=== PATIENT | male | born 1985 | race Caucasian/White ===

== ENCOUNTER 2020-03-27 18:52 | Emergency (ER) | payer OTHER ==
[~2020-03-27] VITALS: Ht 185.4 cm; Wt 90.9 kg
[~2020-03-27 18:52] MED LIST: COMBIVENT IN; GENTAMICIN OS; HYDROCO/APAP1 T11 OR; LORTAB 5 OR; LORTAB5 PO; MEDDOSEPAK OR; NAPROSYN500 MG OR; NAPROSYN500 MG PO; NO; NO CURRENT MEDS; PROAIR HFA IN; ZITHROMAX250 MG PO
[2020-03-27] MEDS ORDERED: HYDROCO/APAP1 TA9 PO (21:07)
[2020-03-27 21:34] VITALS: BP 132/84
== END 2020-03-27 21:52 | disposition home or self-care (01) | DRG 605 ==
LOC: ED 18:52
DX: S00.83XA Contusion of other part of head, initial encounter (principal); S40.021A Contusion of right upper arm, initial encounter; S70.11XA Contusion of right thigh, initial encounter; S20.212A Contusion of left front wall of thorax, initial encounter; S93.401A Sprain of unspecified ligament of right ankle, initial encounter; W55.29XA Other contact with cow, initial encounter; Y93.89 Activity, other specified; Y92.79 Other farm location as the place of occurrence of the external cause; Y99.0 Civilian activity done for income or pay

== ENCOUNTER 2020-05-14 14:08 | Emergency (ER) | payer SELFPAY ==
[~2020-05-14] VITALS: Ht 185.4 cm; Wt 100.0 kg
[~2020-05-14 14:08] MED LIST changes: +HYDROCO/APAP1 TA9 PO
[2020-05-14] MEDS ORDERED: BACTRIM DS1 TAB PO (14:45)
[2020-05-14] MEDS ORDERED: KEFLEX500 M1 PO (14:45)
[2020-05-14] MEDS ORDERED: LORTAB 1010 MG PO (14:45)
[2020-05-14 16:05] VITALS: BP 148/75
--- NOTE | 2020-05-16 09:37 | NUR ---
Canceled cephalexin 500 mg PO TID prescription at [facility][id number] due to MRSA result from wound culture. Bactrim DS PO BID for 10 days prescription remains ready for pickup from [facility] still. Pt will be notified by the pharmacist when he picks up rx about the cancellation.
== END 2020-05-14 16:05 | disposition home or self-care (01) | DRG 603 ==
LOC: ED 14:08
PROC: 0H9DXZZ Drainage of Right Lower Arm Skin, External Approach (ICD-10-PCS; principal; 2020-05-14)
DX: L02.413 Cutaneous abscess of right upper limb (principal); J45.909 Unspecified asthma, uncomplicated; F17.200 Nicotine dependence, unspecified, uncomplicated; B95.62 Methicillin resistant Staphylococcus aureus infection as the cause of diseases classified elsewhere

== ENCOUNTER 2021-12-15 03:18 | Observation (INO) | payer SELFPAY ==
[2021-12-15] VITALS (16 sets, daily range): BP systolic 107–147; BP diastolic 67–103
[~2021-12-15] VITALS: Ht 185.4 cm; Wt 92.0 kg
[~2021-12-15 03:18] MED LIST changes: +BACTRIM DS1 TAB PO; +KEFLEX500 M1 PO; +LORTAB 1010 MG PO
[2021-12-15 03:50] LABS: HEMATOCRIT 41.5 % (39.0-50.0); HEMOGLOBIN 13.5 g/dl (14.0-18.0); IMMATURE GRANULOCYTES 0.1 % (0.0-5.0); MEAN CORPUSCULAR HGB 29.6 pG CALC (26.0-32.0); MEAN CORPUSCULAR HGB CONC 32.5 g/dL CAL (32.0-36.0); NEUT# 5.2 thou/uL (1.82-7.42); RED BLOOD COUNT 4.56 mill/uL (4.70-6.10); RED CELL DISTRI WIDTH 13.2 % (11.5-15.5)
[2021-12-15 04:03] LABS: ALBUMIN 4.5 g/dL (3.2-5.0); ALKALINE PHOSPHATASE 39 u/l (38-126); ANION GAP 12 (6-22 (CALC)); BILIRUBIN, TOTAL 0.4 mg/dL (0.0-1.4); BUN 21 mg/dL (9-20); BUN/CREATININE RATIO 24 (12-20 (CALC)); CARBON DIOXIDE 29 mmol/l (22-30); CHLORIDE 104 mmol/l (95-108); CREATININE 0.9 mg/dL (0.7-1.3); GFR FOR AFR.AMER. > 60 ML/MIN (>=60 (CALC)); GFR OTHER RACES > 60 ML/MIN (>=60 (CALC)); SGOT/AST 25 u/l (17-59); SODIUM 140 mmol/l (137-146)
[2021-12-15 05:41] LABS: URINE BILIRUBIN - DIPSTICK NEGATIVE (NEGATIVE); URINE BLOOD DIPSTICK NEGATIVE (NEGATIVE); URINE COLOR YELLOW; URINE GLUCOSE - DIPSTICK NEGATIVE (NEGATIVE); URINE KETONE NEGATIVE (NEGATIVE); URINE LEUK ESTERASE NEGATIVE (NEGATIVE); URINE PROTEIN - DIPSTICK NEGATIVE (NEG-TRACE); URINE UROBILINOGEN - DIPSTICK 0.2 E.U./dL (0.2)
[2021-12-15 05:46] LABS: URINE NITRITE - DIPSTICK NEGATIVE (Negative)
[2021-12-15 05:57] LABS: MYOGLOBIN 44 ng/mL (0 - 121)
[2021-12-16 04:19] VITALS: BP 128/86
[2021-12-16 05:39] LABS: HEMATOCRIT 39.5 % (39.0-50.0); HEMOGLOBIN 12.8 g/dl (14.0-18.0); MEAN CELL VOLUME 92.1 fL CALC (80.0-100.0); MEAN CORPUSCULAR HGB 29.8 pG CALC (26.0-32.0); MEAN CORPUSCULAR HGB CONC 32.4 g/dL CAL (32.0-36.0); RED BLOOD COUNT 4.29 mill/uL (4.70-6.10); RED CELL DISTRI WIDTH 13.1 % (11.5-15.5)
[2021-12-16 06:09] LABS: ANION GAP 12 (6-22 (CALC)); BUN 14 mg/dL (9-20); BUN/CREATININE RATIO 14 (12-20 (CALC)); CARBON DIOXIDE 26 mmol/l (22-30); CHLORIDE 107 mmol/l (95-108); GFR FOR AFR.AMER. > 60 ML/MIN (>=60 (CALC)); GFR OTHER RACES > 60 ML/MIN (>=60 (CALC)); POTASSIUM 4.7 mmol/l (3.5-5.1); SODIUM 141 mmol/l (137-146)
[2021-12-16 06:19] VITALS: BP 124/75
[2021-12-16 11:26] VITALS: BP 136/93
[2021-12-16 16:30] VITALS: BP 137/84
[2021-12-16 18:45] VITALS: BP 125/92
[2021-12-16 23:45] VITALS: BP 125/78
[2021-12-17 03:25] VITALS: BP 126/89
[2021-12-17 06:31] VITALS: BP 114/68
[2021-12-17 10:56] VITALS: BP 114/67
[2021-12-17] MEDS ORDERED: BACTRIM DS1 TAB PO (12:06)
== END 2021-12-17 13:01 | disposition home or self-care (01) | DRG 603 ==
LOC: ED 03:18 → ED-I 05:50 → ED 06:08 → ED-I 06:37 → MS2 07:15
PROVIDERS: Emergency Medicine; ADMIT Internal Medicine; ATTEND Internal Medicine
DX: L03.116 Cellulitis of left lower limb (principal); L03.115 Cellulitis of right lower limb; F15.10 Other stimulant abuse, uncomplicated; I87.2 Venous insufficiency (chronic) (peripheral); I89.0 Lymphedema, not elsewhere classified; J45.909 Unspecified asthma, uncomplicated; F17.200 Nicotine dependence, unspecified, uncomplicated; Z20.822 Contact with and (suspected) exposure to COVID-19
CPT/HCPCS: G0378; J1650

== ENCOUNTER 2022-03-04 00:25 | Emergency (ER) | payer SELFPAY ==
[~2022-03-04] VITALS: Ht 185.4 cm; Wt 95.0 kg
[2022-03-04 01:15] LABS: HEMATOCRIT 42.5 % (39.0-50.0); HEMOGLOBIN 13.8 g/dl (14.0-18.0); IMMATURE GRANULOCYTES 0.3 % (0.0-5.0); MEAN CORPUSCULAR HGB 29.2 pG CALC (26.0-32.0); MEAN CORPUSCULAR HGB CONC 32.5 g/dL CAL (32.0-36.0); NEUT# 10.06 thou/uL (1.82-7.42); RED BLOOD COUNT 4.72 mill/uL (4.70-6.10); RED CELL DISTRI WIDTH 13.7 % (11.5-15.5)
[2022-03-04 01:20] LABS: ALBUMIN 4.2 g/dL (3.2-5.0); ALKALINE PHOSPHATASE 40 u/l (38-126); BUN 19 mg/dL (9-20); BUN/CREATININE RATIO 23 (12-20 (CALC)); CHLORIDE 99 mmol/l (95-108); CREATININE 0.8 mg/dL (0.7-1.3); GFR FOR AFR.AMER. > 60 ML/MIN (>=60 (CALC)); GFR OTHER RACES > 60 ML/MIN (>=60 (CALC)); LIPASE 122 u/l (23-300); SGOT/AST 25 u/l (17-59); SODIUM 139 mmol/l (137-146); TOTAL PROTEIN 7.1 g/dL (6.3-8.2)
[2022-03-04 01:22] LABS: ANION GAP 12 (6-22 (CALC)); CARBON DIOXIDE 32 mmol/l (22-30)
[2022-03-04 01:32] LABS: MYOGLOBIN 22 ng/mL (0 - 121)
[2022-03-04 03:30] LABS: URINE BILIRUBIN - DIPSTICK NEGATIVE (NEGATIVE); URINE BLOOD DIPSTICK NEGATIVE (NEGATIVE); URINE COLOR YELLOW; URINE GLUCOSE - DIPSTICK NEGATIVE (NEGATIVE); URINE KETONE NEGATIVE (NEGATIVE); URINE LEUK ESTERASE NEGATIVE (NEGATIVE); URINE PH 7.5 (4.5-8.0); URINE PROTEIN - DIPSTICK NEGATIVE (NEG-TRACE); URINE UROBILINOGEN - DIPSTICK 0.2 E.U./dL (0.2)
[2022-03-04 03:38] LABS: URINE NITRITE - DIPSTICK NEGATIVE (Negative)
[2022-03-04] MEDS ORDERED: PROMETHAZINE HY25 M1 PO (03:46)
[2022-03-04 03:48] VITALS: BP 137/87
== END 2022-03-04 04:01 | disposition home or self-care (01) | DRG 392 ==
LOC: ED 00:25
PROVIDERS: Family Medicine
DX: K52.9 Noninfective gastroenteritis and colitis, unspecified (principal); J45.909 Unspecified asthma, uncomplicated
CPT/HCPCS: J0131; Q9967; S0164

== ENCOUNTER 2022-04-21 17:59 | Emergency (ER) | payer SELFPAY ==
[~2022-04-21] VITALS: Ht 185.4 cm; Wt 77.1 kg
[~2022-04-21 17:59] MED LIST changes: +PROMETHAZINE HY25 M1 PO
[2022-04-21 18:05] VITALS: BP 164/109
[2022-04-21] MEDS ORDERED: NAPROXEN500 MG PO (18:43)
[2022-04-21 18:48] VITALS: BP 164/109
== END 2022-04-21 18:54 | disposition home or self-care (01) | DRG 605 ==
LOC: ED 17:59
DX: S60.221A Contusion of right hand, initial encounter (principal); W22.8XXA Striking against or struck by other objects, initial encounter